=== PATIENT | male | born 2000 | race Caucasian/White ===

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

== ENCOUNTER 2020-07-26 23:16 | Emergency (ER) | payer OTHER ==
[~2020-07-26] VITALS: Ht 172.7 cm; Wt 68.0 kg
[2020-07-27] MEDS ORDERED: PREDNISONE50 MG PO (02:28)
[2020-07-27] MEDS ORDERED: EPIPEN 2-P0.3 MG/0.3 IM (02:28)
[2020-07-27 02:46] VITALS: BP 102/45
== END 2020-07-27 02:46 | disposition home or self-care (01) ==
LOC: M.ERS 23:16
DX: L50.9 Urticaria, unspecified (principal); T78.40XA Allergy, unspecified, initial encounter; X58.XXXA Exposure to other specified factors, initial encounter; F17.210 Nicotine dependence, cigarettes, uncomplicated; Z88.0 Allergy status to penicillin